=== PATIENT | female | born 1975 | race Two or more races ===

== ENCOUNTER 2021-11-26 13:56 | Emergency (ER) | payer BC, OTHER ==
[~2021-11-26] VITALS: Ht 167.6 cm; Wt 90.1 kg
[2021-11-26 16:39] VITALS: BP 119/69
[2021-11-26] MEDS ORDERED: IBUP800T27 PO (17:29)
== END 2021-11-26 17:32 | disposition home or self-care (01) ==
LOC: ER 13:56
DX: S90.121A Contusion of right lesser toe(s) without damage to nail, initial encounter (principal); Z90.710 Acquired absence of both cervix and uterus; X58.XXXA Exposure to other specified factors, initial encounter; Y93.89 Activity, other specified; Y92.9 Unspecified place or not applicable; Y99.8 Other external cause status
CPT/HCPCS: 73630